=== PATIENT | female | born 2000 | race Two or more races ===

== ENCOUNTER 2023-12-06 01:38 | Inpatient (IN) | payer OTHER ==
[~2023-12-06] VITALS: Ht 165.1 cm; Wt 68.0 kg
[2023-12-06 02:15] LABS: PH,URINE 6.5 (5.0-8.0); URINE APPEARANCE Clear; URINE BILIRRUBIN Negative (NEGATIVE); URINE BLOOD Trace; URINE COLOR Yellow; URINE GLUCOSE Negative (NEGATIVE); URINE LEUKOCYTE Small; URINE NITRATE Negative; URINE PROTEIN Trace (NEGATIVE)
[2023-12-06 02:18] LABS: URINE BACTERIA 1669.3 uL (0.0-1933); URINE EPITHELIAL CELLS 60.4 uL (0.0-38.8); URINE WBC 94.4 uL (0.0-23.2)
[2023-12-06 02:32] LABS: HEMATOCRIT 32.9 % (36.0-45.00); HEMOGLOBIN 10.8 g/dL (12.0-15.00); INR 0.97; MEAN CORPUSCULAR HEMOGLOBIN 24.3 pg (27.00-32.0); MEAN CORPUSCULAR HGB CONC 32.8 g/dl (32.0-36.0); PARTIAL THROMBOPLASTIN TIME 23.9 SECONDS (22.0-34.0); PROTHROMBIN TIME 10.2 SECONDS (9.0-11.5); RED BLOOD COUNT 4.45 M/uL (4.00-6.00)
[2023-12-06 02:37] LABS: ALBUMIN 2.8 gm/dL (3.4-5.0); BILIRUBIN TOTAL 0.24 mg/dL (0.3-1.2); CALCIUM 8.9 mg/dL (8.5-10.1); CREATININE SERUM 0.46 mg/dL (0.55-1.02); GFR 166.89; PLATELET COUNT 118 K/uL (150-450); POTASSIUM 4.1 mEq/L (3.5-5.1); TOTAL PROTEIN 6.8 gm/dL (6.4-8.2)
[2023-12-06 04:48] LABS: ABG PH 7.287 (7.35-7.45); ABG PO2 30.4 mmHg (80-100); ABG pCO2 49.5 mmHg (35-45); BASE EXCESS -3.9 mmol/l; BICARBONATE 23.1 mmol/l (23-25); SaO2 48.5 %; Tco2 24.6 mmol/l; o2 21 %
[2023-12-06 10:18] LABS: HEMATOCRIT 32.6 % (36.0-45.00); HEMOGLOBIN 10.6 g/dL (12.0-15.00); MEAN CELL VOLUME 72.5 fL (80.00-100.00); MEAN CORPUSCULAR HEMOGLOBIN 23.6 pg (27.00-32.0); MEAN CORPUSCULAR HGB CONC 32.6 g/dl (32.0-36.0); RED CELL DISTRIBUTION WIDTH 15.2 % (11.5-14.5)
[2023-12-06 10:46] LABS: PLATELET COUNT 103 K/uL (150-450)
== END 2023-12-08 14:47 | disposition home or self-care (01) | DRG 807 ==
LOC: OB/GYN 01:38 → LDR 01:38 → OB/GYN 04:25
PROVIDERS: Obstetrics & Gynecology; ADMIT Obstetrics & Gynecology; ATTEND Obstetrics & Gynecology
PROC: 10E0XZZ Delivery of Products of Conception, External Approach (ICD-10-PCS; principal; 2023-12-06)
PROC: 4A1HXCZ Monitoring of Products of Conception, Cardiac Rate, External Approach (ICD-10-PCS; 2023-12-06)
DX: O80 Encounter for full-term uncomplicated delivery (principal); Z37.0 Single live birth; Z3A.38 38 weeks gestation of pregnancy; Z20.822 Contact with and (suspected) exposure to COVID-19